=== PATIENT | female | born 1935 | race Asian ===

== ENCOUNTER 2021-06-15 14:38 | Inpatient (IN) | payer BC, MEDICAID ==
[~2021-06-15] VITALS: Ht 142.2 cm; Wt 36.3 kg
[2021-06-15 14:45] VITALS: BP 131/64
--- NOTE | 2021-06-15 14:50 | NUR ---
PT CAMERON VIA GURNEY TO BED 14.
--- NOTE | 2021-06-15 14:55 | NUR ---
DR CALABRESE AT BEDSIDE EVALUATING PT
[2021-06-15] MEDS ORDERED: NACL 0.9% 1,000 ML IV ONE ×2 (15:00→21:30)
--- NOTE | 2021-06-15 15:00 | NUR ---
86 Y/O FEMALE BIBA FROM HOME FOR GENERALIZED WEAKNESS. PER MEDICS, PT LIVES ALONE AND NEIGHBORS HAVE NOT SEEN HER IN 3 DAYS. NEIGHBORS CALLED FOR PD FOR WELLNESS CHECK. PD CALLED MEDICS AND HAD TO BREAK INTO HOUSE, PT WAS FOUND COVERED IN FECES/URINE LAYING IN THE BATHTUB FULLY CLOTHED. PER MEDICS, PT WAS IN TUB FOR 3 DAYS. ONLY COMPLAINT PT HAS IS SHE IS HUNGRY AND THIRSTY, PT DENIES ANY PAIN. EVEN AND UNLABORED RESPIRATIONS NOTED. PT IS EXTREMELY FRAIL. PT HAS PRESSURE SORES/SKIN TEAR ON SACRAL AREA AND UPPER BACK. PT PLACED IN GOWN. PMH:DENIES ALLERGIES:DENIES
--- NOTE | 2021-06-15 17:49 | NUR ---
SPOKE WITH PATIENTS SISTER RACHEL WILSON TO PROVIDE. # [phone]
--- NOTE | 2021-06-15 18:00 | NUR ---
PT SOILDED HERSELF, PT CLEANED, PROVIDED NEW CLEAN GOWN, SHEETS, AND BLANKETS, WILL CONTINUE TO MONITOR
[2021-06-15 18:02] LABS: HEMATOCRIT 38.5 % (36-48); HEMOGLOBIN 12.8 g/dL (12.0-16.0); LYMPHOCYTES # (AUTO) 0.1 K/uL (2.5-16.5); MEAN CORPUSCULAR HEMOGLOBIN 32 pg (27-31); MEAN CORPUSCULAR HGB CONC 33 g/dL (33-37); MEAN CORPUSCULAR VOLUME 94.9 fL (80-94); MONOCYTES # (AUTO) 0.6 K/uL (0.8-1.0); MONOCYTES % (AUTO) 5.1 % (1.7-9.3); NEUTROPHILS # (AUTO) 10.4 K/uL (1.8-7.7); NEUTROPHILS % (AUTO) 93.9 % (42.2-75.2); PLATELET COUNT (AUTO) 279 K/uL (140-450); RED BLOOD CELL COUNT(AUTO) 4.06 MIL/uL (4.20-5.40); RED CELL DISTRIBUTION WIDTH 13.9 % (11.6-13.7); WHITE BLOOD COUNT (AUTO) 11.1 K/uL (4.8-10.8)
[2021-06-15 18:36] LABS: ALBUMIN 2.9 g/dL (3.4-5.0); ANION GAP 15.8 (8-16); ASPARTATE AMINOTRANSFERASE 128 U/L (15-37); CARBON DIOXIDE 27.3 mmol/L (21-32); CHLORIDE 107 mmol/L (98-107); GLUCOSE 96 mg/dL (74-106); POTASSIUM 4.1 mmol/L (3.5-5.1); SODIUM SERUM 146 mmol/L (136-145)
[2021-06-15 18:38] LABS: UREA NITROGEN, BLOOD 71 mg/dL (7-18)
--- NOTE | 2021-06-15 19:00 | NUR ---
WOUND PHOTOS TAKEN AND PLACED IN CHART. WOUNDS COVERED WITH BANDAGE
--- NOTE | 2021-06-15 19:29 | NUR ---
REPORT GIVEN TO HARESH RODARTE, TRANSFER OF CARE AT THIS TIME
--- NOTE | 2021-06-15 19:50 | NUR ---
wound pictures documentation forms taken by [employer]. placed in file.
--- NOTE | 2021-06-15 20:09 | NUR ---
kimberly given to laboratory scientist
--- NOTE | 2021-06-15 20:11 | NUR ---
ATTEMPTED TO CALL PT SISTER FOR MED REC. COULD NOT REACH. PT CLAIMS SHE TAKE NO MEDS. POOR HISTORIAN
[2021-06-15 20:16] LABS: PROTHROMBIN TIME 9.8 secs (10.8-13.4)
--- NOTE | 2021-06-15 20:25 | NUR ---
2024 - RACHEL WILSON SISTER CALLED GIVING CONSENT FOR FATHER TANJA/ FATHER MAR [facility] IN [place] TO COME GIVE LAST RITES TOMORROW
[2021-06-15] MEDS ORDERED: cefTRIAXone 1,000 MG VIAL ONE (20:35)
[2021-06-15] MEDS ORDERED: HYDROcodone/APAP 7.5/325 MG 1 TAB PO PRN (21:30)
[2021-06-15] MEDS ORDERED: ONDANSETRON 4 MG/2 ML VIAL IM/IVP PRN (21:30)
[2021-06-15] MEDS ORDERED: guaiFENesin DM 200/20 MG-10 ML 10 ML UDC PO PRN (21:30)
[2021-06-15] MEDS ORDERED: POTASSIUM CHLORIDE 10 MEQ TABER PO PRN (21:30)
[2021-06-15] MEDS ORDERED: ZOLPIDEM 5 MG TAB PO PRN (21:30)
[2021-06-15] MEDS ORDERED: DOCUSATE SODIUM 100 MG GELCAP PO PRN (21:30)
[2021-06-15] MEDS ORDERED: ACETAMINOPHEN 325 MG TAB PO PRN (21:30)
[2021-06-15 21:47] LABS: APPEARANCE,URINE CLEAR (CLEAR); BILIRUBIN,URINE NEGATIVE (NEGATIVE); BLOOD, URINE NEGATIVE (NEGATIVE); COLOR,URINE YELLOW (YELLOW); LEUKOCYTE ESTERASE ,URINE NEGATIVE (NEGATIVE); NITRITE, URINE NEGATIVE (NEGATIVE); UGLUCOSE NEGATIVE (NEGATIVE)
[2021-06-15 22:48] LABS: CHOL/HDL RATIO 2.2 (1-4.5); FREE T4 (FREE THYROXINE) 0.85 ng/dL (0.76-1.46); MAGNESIUM 2.4 mg/dL (1.8-2.4); PHOSPHORUS 3.6 mg/dL (2.5-4.9); THYROID STIMULATING HORMONE 1.7 uIU/mL (0.34-3.74)
--- NOTE | 2021-06-15 23:48 | NUR ---
PT REQ FOOD . GAVE PT SANDWHICH AND WATER
[2021-06-16] MEDS ORDERED: ASPIRIN 325 MG TAB PO ONE (00:40)
[2021-06-16] MEDS ORDERED: ASPIRIN 325 MG TAB ONE (02:03)
--- NOTE | 2021-06-16 02:16 | NUR ---
PT TEMP LOW. AOVERED WITH TWO ADDITIONAL BLANKETS AND SOCKS. WILL CONTINUE TO MONITOR
[2021-06-16] MEDS: DEXT 5% /NACL 0.9% 1,000 ML IV SCH ×2 (03:00→07:30)
--- NOTE | 2021-06-16 05:20 | NUR ---
SPOKE TO PTS SISTER . PT SISITER CONFIRMED PT DOES NOT BELIEVE IN MEDICATIONS OR VACCINATIONS. PT DOES NOT TAKE ANY HOME MEDS. SISTER REQUESTED THAT [employer] BE CALLED TO FIND HOME PLACEMENT FOR SISTER. SISTER HOLDS DURABLE POWER OF HOUSING PROPERTY MANAGER
--- NOTE | 2021-06-16 05:22 | NUR ---
PT SISTER REQUESTED FULL DECATOR OPERATOR FOR HOME PLACEMENT. PT LIVES IN A 2 STORY [place] AND ITS NOT SAFE FOR HER TO BE LEFT ALONE. PT SISTER STATES IF IT WASNT FOR SISTER SHE WOULD HAVE BEEN .
--- NOTE | 2021-06-16 07:57 | NUR ---
REPORT RECEIVED FROM HARESH RODARTE FOR TRANSFER OF CARE
--- NOTE | 2021-06-16 08:00 | NUR ---
Pt report given to YONI. Transfer of care at this time.
--- NOTE | 2021-06-16 09:34 | NUR ---
PATIENT HAS BEEN SCREENED AND CATEGORIZED HIGH NUTRITION RISK. PATIENT WILL BE SEEN WITHIN 1-2 DAYS OF ADMISSION. 06/16/21-06/17/[address] REVIEW[address] BY [address]ILIA E[address]
--- NOTE | 2021-06-16 10:00 | NUR ---
PT MOVED FROM BED 14 TO BED 5
--- NOTE | 2021-06-16 10:10 | NUR ---
Patient appears to be resting comfortably in bed. Vital Signs within normal limits. Respirations even and unlabored.
--- NOTE | 2021-06-16 10:15 | NUR ---
PT ADMITTED AT [address] NORMAN TO TELE. PT CURRENTLY TELE HOLD IN ED BED 5
[2021-06-16 10:23] LABS: ALBUMIN 2.1 g/dL (3.4-5.0); ANION GAP 7.5 (8-16); ASPARTATE AMINOTRANSFERASE 99 U/L (15-37); CARBON DIOXIDE 25.6 mmol/L (21-32); CHLORIDE 118 mmol/L (98-107); CREATININE 0.8 mg/dL (0.6-1.3); GLUCOSE 122 mg/dL (74-106); POTASSIUM 3.1 mmol/L (3.5-5.1); SODIUM SERUM 148 mmol/L (136-145); TOTAL BILIRUBIN 0.5 mg/dL (0.0-1.0); UREA NITROGEN, BLOOD 52 mg/dL (7-18)
[2021-06-16] MEDS: PANTOPRAZOLE 40 MG TABEC PO SCH (10:27)
[2021-06-16 10:56] LABS: BASOPHILS % (AUTO) 0.1 % (0.0-2.0); HEMATOCRIT 31.4 % (36-48); HEMOGLOBIN 10.7 g/dL (12.0-16.0); LYMPHOCYTES # (AUTO) 0.1 K/uL (2.5-16.5); LYMPHOCYTES % (AUTO) 1.8 % (20.5-51.1); MEAN CORPUSCULAR HEMOGLOBIN 32 pg (27-31); MEAN CORPUSCULAR HGB CONC 34 g/dL (33-37); MEAN CORPUSCULAR VOLUME 94.7 fL (80-94); MONOCYTES # (AUTO) 0.4 K/uL (0.8-1.0); MONOCYTES % (AUTO) 6.7 % (1.7-9.3); NEUTROPHILS # (AUTO) 6.1 K/uL (1.8-7.7); NEUTROPHILS % (AUTO) 91.4 % (42.2-75.2); PLATELET COUNT (AUTO) 209 K/uL (140-450); RED BLOOD CELL COUNT(AUTO) 3.32 MIL/uL (4.20-5.40); RED CELL DISTRIBUTION WIDTH 13.8 % (11.6-13.7); WHITE BLOOD COUNT (AUTO) 6.6 K/uL (4.8-10.8)
--- NOTE | 2021-06-16 12:37 | NUR ---
Pt report given to ALISON BARTON. Transfer of care at this time.
--- NOTE | 2021-06-16 14:15 | NUR ---
PT REPOSITIONED IN BED, VSS, WILL CONTINUE TO MONITOR.
--- NOTE | 2021-06-16 17:49 | NUR ---
PT SLEEPING VISIBLE EQUAL RISE AND FALL OF CHEST, VSS, WILL CONTINUE TO MONITOR.
--- NOTE | 2021-06-16 19:29 | NUR ---
GAVE REPORT TO ALISON DUNBAR. TRANSFER OF CARE AT THIS TIME.
--- NOTE | 2021-06-16 19:30 | NUR ---
ASSISTED WITH REPOSITIONING. PT DRINKING WATER AND HAVING SOUP, TOLERATED WELL
--- NOTE | 2021-06-16 23:41 | NUR ---
AWAKE, SITTING UP IN BED EATING SANDWICH
--- NOTE | 2021-06-17 00:38 | NUR ---
Patient appears to be resting comfortably in bed. Vital Signs within normal limits. Respirations even and unlabored.
--- NOTE | 2021-06-17 01:00 | NUR ---
AWAKE, RTEQUESTING SANDWICH. SANDWICH GIVWN AND MEDICATED ORDERED
--- NOTE | 2021-06-17 02:30 | NUR ---
RESTING QUIETLY. RESPIRATIONS REGULAR AND UNLABORED
[2021-06-17] MEDS: DEXT 5% /NACL 0.9% 1,000 ML IV SCH ×3 (03:30→13:30)
[2021-06-17 07:05] LABS: BASOPHILS % (AUTO) 0.2 % (0.0-2.0); HEMATOCRIT 37.2 % (36-48); HEMOGLOBIN 12.3 g/dL (12.0-16.0); LYMPHOCYTES # (AUTO) 0.6 K/uL (2.5-16.5); LYMPHOCYTES % (AUTO) 7.8 % (20.5-51.1); MEAN CORPUSCULAR HEMOGLOBIN 32 pg (27-31); MEAN CORPUSCULAR HGB CONC 33 g/dL (33-37); MEAN CORPUSCULAR VOLUME 96.3 fL (80-94); MONOCYTES # (AUTO) 0.7 K/uL (0.8-1.0); MONOCYTES % (AUTO) 8.4 % (1.7-9.3); NEUTROPHILS # (AUTO) 6.5 K/uL (1.8-7.7); NEUTROPHILS % (AUTO) 83.6 % (42.2-75.2); PLATELET COUNT (AUTO) 203 K/uL (140-450); RED BLOOD CELL COUNT(AUTO) 3.86 MIL/uL (4.20-5.40); WHITE BLOOD COUNT (AUTO) 7.8 K/uL (4.8-10.8)
[2021-06-17 07:08] LABS: T4 (THYROXINE) 5.2 ug/dL (4.5-12.0)
[2021-06-17 09:09] LABS: ALBUMIN 2.4 g/dL (3.4-5.0); ANION GAP 12.8 (8-16); ASPARTATE AMINOTRANSFERASE 116 U/L (15-37); CARBON DIOXIDE 26.8 mmol/L (21-32); CHLORIDE 116 mmol/L (98-107); CREATININE 0.9 mg/dL (0.6-1.3); GLUCOSE 113 mg/dL (74-106); POTASSIUM 3.6 mmol/L (3.5-5.1); SODIUM SERUM 152 mmol/L (136-145); TOTAL BILIRUBIN 0.4 mg/dL (0.0-1.0); UREA NITROGEN, BLOOD 42 mg/dL (7-18)
[2021-06-17] MEDS: PANTOPRAZOLE 40 MG TABEC PO SCH (10:47)
[2021-06-17 11:07] LABS: CKMB RELATIVE INDEX 1.6 (0.0-2.5); CREATINE KINASE MB 19.6 ng/mL (0-3.6)
--- NOTE | 2021-06-17 12:26 | NUR ---
06/17/21 RD INITIAL ASSESSMENT COMPLETED PLEASE REFER TO NUTRITION ASSESSMENT UNDER CARE ACTIVITY FOR ESTIMATED NUTRITIONAL NEEDS. 1. CONTINUE PUREE DIET TOLERATED 2. CONSIDER ENSURE BID IF PO INTAKE <75% 3. PROVIDE MEAL ASSISTANCE AND ENCOURAGE INCREASED PO INTAKE 4. RD TO FOLLOW-UP 2-3 DAYS, HIGH RISK REVIEWED BY CECILIA ESTRADA RD
--- NOTE | 2021-06-17 16:43 | NUR ---
SPOKE WITH WARPING MACHINE OPERATOR ELIAS AND ALSO RACHEL AT THE SAME TIME. RACHEL WILL CALL ELIAS TO PLAN A PLACEMENT FOR THE PT.
--- NOTE | 2021-06-17 17:18 | NUR ---
DC PLANNING: THE PATIENT WAS ADMITTED AFTER BEING FOUND CLOTHED IN HER BATHTUB AND HAD NOT BEEN SEEN BY NEIGHBORS FOR 3 DAYS. EDU SPOKE WITH THE PATIENTS SISTER RACHEL BY PHONE. THE PATIENT LIVES IN A [address] BY HERSELF AND IS NORMALLY VERY ACTIVE IN AMBULATING. SHE HAS A CANE AND FWW BUT DOES NOT USE THEM. HER SISTER STATES THAT THE PATIENT HAS A H/O SCHIZOPHRENIA AND EXHIBITS PARANOID BEHAVIOR SUCH NOT BATHING BECAUSE THE NEIGHBORS SATELLITE DISH ALLOWS THEM TO WATCH HER IN HER APARTMENT. THE PATIENT HAS BEEN ASSISTED BY CLERGY FROM [facility] IN [place] BUT THEY TOLD THE PATIENTS SISTER THAT THEY WERE NO LONGER ABLE TO ASSIST WITH CARE AND THAT THE PATIENT NEEDS A DIFFERENT LIVING SITUATION. FATHER TANJA FROM THE [facility] CAME TO GIVE LAST RITES AT THE HOSPITAL BUT HAS NOT BEEN RECENTLY INVOLVED IN ASSISTING THE PATIENT. APS IN INVOLVED, CONTACTS THERE ARE [facility] ([phone]), AND [facility] ([phone]). THE PATIENT HAS BEEN HAVING RECENT PROBLEMS WITH MANAGING FINANCES AND UNDERSTANDING HOW TO USE HER DEBIT CARD AND HAS BEEN GOING TO [employer] REGULARLY FOR THIS, THEY IN TURN CALLED HER SISTER. THE PATIENT ALSO HAS A ONCE A WEEK FOOD DELIVERY BUT HER SISTER ISN'T SURE WHO ARRANGED THIS. SHE STATES THAT WHEN SHE VISITED IN NOVEMBER THAT THE PATIENTS REFRIGERATOR AND FREEZER WERE FULL BUT THE PATIENT ATE VERY LITTLE. SHE HAS INCOME OF [employer] AND [employer], AND FAMILY ASSISTS HER REGULARLY FINANCIALLY. SHE OWNS HER CONDO AND HAS A SECOND MORTGAGE ON IT. EDU DISCUSSED DC PLANING OF HAVING THE PATIENT GO TO SNF BUT THERE IS SOME QUESTION ABOUT THE PATIENT AGREEING TO DO THIS. EUD ALSO ENDORSED THAT THE HOSPITAL CAN DO VERY LITTLE IN TERMS OF OVERHEAD CRANE INSPECTOR PLANNING WITH PLACEMENT, POTENTIALLY IN AN RETIREMENT. EDU SPOKE WITH LEXIE AT [facility], CONTRACTED SNF OPTIONS GIVEN, CM WILL REFER THE PATIENT AND FOLLOW FOR NEEDS. Addendum: 06/18/21 at 0901 by Lina Palomino CM DC PLANNING: REFERRALS FAXED TO [facility], [facility] AND [facility]. CM WILL FOLLOW FOR NEEDS. Addendum: 06/18/21 at 1310 by Lina Palomino CM DC PLANNING: CM FOLLOWING UP WITH [facility] AND [facility], NO ANSWER YET. CM WILL FOLLOW FOR NEEDS. Addendum: 06/18/21 at 1327 by Lina Palomino CM DC PLANNING: PATIENT DECLINED BY [facility], NEW REFERRALS SENT TO [facility], [facility] AND [facility]. CM WILL FOLLOW UP. Addendum: 06/18/21 at 1429 by Lina Palomino CM DC PLANNING: PATIENT ACCEPTED TO [facility] IN THE AM, NUMBER TO CALL REPORT IS [phone]. ROOM ASSIGNED IS 217B, ACCEPTING MD DR. DANIELS. EDU OWEN FOR [facility] WILL FAX OVER THE AUTHORIZATION. CM WILL FOLLOW. Addendum: 06/18/21 at 1630 by Lina Palomino CM DC PLANNING: PATIENT SCHEDULED TO BE PICKED UP AT 11 AM BY CHARISSE RAHMAN ([phone])JAMES. CM WILL FOLLOW FOR NEEDS.
--- NOTE | 2021-06-17 17:36 | NUR ---
1300 ML URINE EMPTED FROM F/C.
[2021-06-17] MEDS: DEXT 5% / NACL 0.45% 1,000 ML IV SCH (18:37)
--- NOTE | 2021-06-17 19:27 | NUR ---
REPORT GIVEN TO ABDIRIZAK ROSAS.
--- NOTE | 2021-06-17 20:00 | NUR ---
FED HER , AND SHE ATE WITH APPETITE, TOLERATED WELL.
--- NOTE | 2021-06-18 | NUR ---
Patient appears to be resting comfortably in bed. Vital Signs within normal limits. Respirations even and unlabored.
[2021-06-18] MEDS: DEXT 5% / NACL 0.45% 1,000 ML IV SCH ×3 (03:21→21:33)
[2021-06-18 07:14] LABS: BASOPHILS % (AUTO) 0.2 % (0.0-2.0); EOSINOPHILS % (AUTO) 0.2 % (0.0-4.0); HEMATOCRIT 33.8 % (36-48); HEMOGLOBIN 11.1 g/dL (12.0-16.0); LYMPHOCYTES # (AUTO) 0.5 K/uL (2.5-16.5); LYMPHOCYTES % (AUTO) 7.3 % (20.5-51.1); MEAN CORPUSCULAR HEMOGLOBIN 32 pg (27-31); MEAN CORPUSCULAR HGB CONC 33 g/dL (33-37); MEAN CORPUSCULAR VOLUME 95.7 fL (80-94); MONOCYTES # (AUTO) 0.6 K/uL (0.8-1.0); MONOCYTES % (AUTO) 7.8 % (1.7-9.3); NEUTROPHILS % (AUTO) 84.5 % (42.2-75.2); PLATELET COUNT (AUTO) 171 K/uL (140-450); RED BLOOD CELL COUNT(AUTO) 3.53 MIL/uL (4.20-5.40); RED CELL DISTRIBUTION WIDTH 14.1 % (11.6-13.7); WHITE BLOOD COUNT (AUTO) 7.1 K/uL (4.8-10.8)
[2021-06-18 07:22] LABS: ANION GAP 10.5 (8-16); ASPARTATE AMINOTRANSFERASE 101 U/L (15-37); CHLORIDE 110 mmol/L (98-107); CREATININE 0.7 mg/dL (0.6-1.3); GLUCOSE 124 mg/dL (74-106); POTASSIUM 3.5 mmol/L (3.5-5.1); SODIUM SERUM 143 mmol/L (136-145); TOTAL BILIRUBIN 0.4 mg/dL (0.0-1.0); UREA NITROGEN, BLOOD 29 mg/dL (7-18)
--- NOTE | 2021-06-18 07:29 | NUR ---
REPORT GIVEN TO NINI, TRANSFER OF CARE AT THIS TIME
[2021-06-18] MEDS: PANTOPRAZOLE 40 MG TABEC PO SCH (11:22)
--- NOTE | 2021-06-18 19:20 | NUR ---
GAVE REPORT TO ASTER HUTSON.
--- NOTE | 2021-06-18 23:00 | NUR ---
PT SUNDOWNING. PT PULLED OUT IV. PT REFUSING TO PUT ANOTHER BACK IN. SHE STATES "GOD DOES NOT WANT THAT". PT RAMBLES ON AND ON. PT VSS . BED LOWERED TO LOWEST POSITION. BOTH SIDE RAILS UP FOR SAFETY.
--- NOTE | 2021-06-19 00:30 | NUR ---
PERFORMED SPONGE BATH ON CLIENT. TO CLEAN UP BLOOD. PT STILL . PT DENYING MEDS AND WILL NOT LET ME ESTABLISH IV. ALL VSS
--- NOTE | 2021-06-19 00:30 | NUR ---
Note france in EDM - 06/19/21 at 0238 by MADAY PT RIPPED OUT IV. PERFORMED SPONGE BATH ON CLIENT TO CLEAN UP BLOOD. ALSO CHANGED SOILED BRIEF . PERFORME PERICARE. BED LOWERED TO LOWEST POSTION. PT STILL SUNDOWNING.X2 RAILS UP FOR SAFETY. VSS
[2021-06-19 07:08] LABS: BASOPHILS % (AUTO) 0.3 % (0.0-2.0); EOSINOPHILS % (AUTO) 0.2 % (0.0-4.0); HEMATOCRIT 33.2 % (36-48); HEMOGLOBIN 11.3 g/dL (12.0-16.0); LYMPHOCYTES # (AUTO) 0.4 K/uL (2.5-16.5); LYMPHOCYTES % (AUTO) 4.9 % (20.5-51.1); MEAN CORPUSCULAR HEMOGLOBIN 32 pg (27-31); MEAN CORPUSCULAR HGB CONC 34 g/dL (33-37); MEAN CORPUSCULAR VOLUME 95.2 fL (80-94); MONOCYTES # (AUTO) 0.6 K/uL (0.8-1.0); MONOCYTES % (AUTO) 8.1 % (1.7-9.3); NEUTROPHILS # (AUTO) 6.7 K/uL (1.8-7.7); NEUTROPHILS % (AUTO) 86.5 % (42.2-75.2); PLATELET COUNT (AUTO) 188 K/uL (140-450); RED BLOOD CELL COUNT(AUTO) 3.49 MIL/uL (4.20-5.40); RED CELL DISTRIBUTION WIDTH 13.5 % (11.6-13.7); WHITE BLOOD COUNT (AUTO) 7.7 K/uL (4.8-10.8)
[2021-06-19 07:10] LABS: ALBUMIN 1.8 g/dL (3.4-5.0); ANION GAP 8.1 (8-16); ASPARTATE AMINOTRANSFERASE 75 U/L (15-37); CARBON DIOXIDE 26.7 mmol/L (21-32); CHLORIDE 107 mmol/L (98-107); CREATININE 0.8 mg/dL (0.6-1.3); GLUCOSE 184 mg/dL (74-106); SODIUM SERUM 139 mmol/L (136-145); TOTAL BILIRUBIN 0.3 mg/dL (0.0-1.0); UREA NITROGEN, BLOOD 23 mg/dL (7-18)
[2021-06-19 07:44] LABS: POTASSIUM 2.8 mmol/L (3.5-5.1)
[2021-06-19] MEDS: PANTOPRAZOLE 40 MG TABEC PO SCH (08:16)
[2021-06-19] MEDS: DEXT 5% / NACL 0.45% 1,000 ML IV SCH (08:16)
--- NOTE | 2021-06-19 08:17 | NUR ---
Note undone in [facility] - 06/19/21 at 0822 by [email or web address] RECEIVED REPORT FROM ALISON RODARTE FOR TRANSFER OF CARE Addendum: 06/19/21 at 0818 by [email or web address] Amendment undone in [facility] - 06/19/21 at 0822 by [email or web address] HARESH RODARTE
--- NOTE | 2021-06-19 08:18 | NUR ---
PT PLACED BACK ON POMOLOGIST AT THIS TIME. VITAL SIGNS STABLE. WILL CONTINUE TO MONITOR
--- NOTE | 2021-06-19 08:58 | NUR ---
PHYSICAL THERAPY CO-SIGN The Physical Therapy Progress Notes documented by Skating Rink Ice Maker have been reviewed. Reviewed/Co-Signed by: Hoa Duran Documentation Done by: SHERRILL VILLAGOMEZ PTA Addendum: 06/19/21 at 0859 by Hoa Duran PT Amended: Links added.
--- NOTE | 2021-06-19 09:30 | NUR ---
pt provided with warm blanket and food bedside
--- NOTE | 2021-06-19 09:52 | NUR ---
REPORT GIVEN TO LETITIA AT [facility] FOR TRANSFER TO FACILITY. PT WILL GO TO ROOM 214A UNDER DR DANIELS. TRANSPORT AT BEDSIDE. ETA 30 MIN.
[2021-06-19 10:02] VITALS: BP 136/76
--- NOTE | 2021-06-19 10:05 | NUR ---
Patient discharged with v/s stable. Written and verbal after care instructions given and explained. Patient verbalized understanding. [facility]. All questions addressed prior to discharge. Advised to follow up with PMD. PENDING D/C INSTRUCTIONS BY DR HUSTON
[2021-06-19 10:06] VITALS: BP 136/76
== END 2021-06-19 11:00 | DRG 557 ==
LOC: MED 14:38 → EDSEX 14:38 → MTU 06-16 02:43
PROVIDERS: ADMIT Family Medicine; ATTEND Family Medicine
DX: M62.82 Rhabdomyolysis (principal); E43 Unspecified severe protein-calorie malnutrition; I21.A1 Myocardial infarction type 2; G93.41 Metabolic encephalopathy; I50.43 Acute on chronic combined systolic (congestive) and diastolic (congestive) heart failure; E87.0 Hyperosmolality and hypernatremia; Z68.1 Body mass index [BMI] 19.9 or less, adult; E86.0 Dehydration; D64.9 Anemia, unspecified; E87.6 Hypokalemia; E78.5 Hyperlipidemia, unspecified; R62.7 Adult failure to thrive; Z60.2 Problems related to living alone; Z20.822 Contact with and (suspected) exposure to COVID-19; R74.01 Elevation of levels of liver transaminase levels; S00.03XA Contusion of scalp, initial encounter; X58.XXXA Exposure to other specified factors, initial encounter; Y93.89 Activity, other specified; Y92.89 Other specified places as the place of occurrence of the external cause; Y99.8 Other external cause status; R40.2352 Coma scale, best motor response, localizes pain, at arrival to emergency department
CPT/HCPCS: 36415; 70450; 71045; 72125; 80053; 81003; 82150; 82550; 82553; 83036; 83605; 83690; 83735; 83880; 84100; 84436; 84439; 84443; 84479; 84484; 85025; 85610; 85730; 87040; 87086; 93005; 96361; 96365; 97163-GP; 97530; 99285; J0696; J1644